=== PATIENT | female | born 1975 | race Caucasian/White ===

== ENCOUNTER 2020-02-24 06:22 | Emergency (ER) | payer BC, MEDICAID ==
--- NOTE | 2020-02-24 07:30 | EDM.PDOC ---
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 She presents to the ED with R>L wrist pain after catching a customer that collapsed. The patient did not fall. She is right hand dominant. Denies numbness, tingling or weakness. Onset Date: 02/21/20 Location: Reports: Upper Extremity, Left, Upper Extremity, Right Severity: Moderate Bilateral wrists, R>L Pain Score (Numeric/FACES): 8 - Related Data Allergies Allergy/AdvReac Type Severity Reaction Status Date / Time Penicillins Allergy Cannot Verified 02/24/20 06:28 Remember Home Meds: Home Meds Ibuprofen [Advil] 800 mg PO ASDIRECTED PRN 10/28/13 [History] Celecoxib 200 mg BID 02/24/20 [History] Losartan [Cozaar] 100 mg PO DAILY 02/24/20 [History] Norethindrone 0.35 mg ASDIRECTED 02/24/20 [History] hydroCHLOROthiazide [Hydrochlorothiazide] 12.5 mg DAILY 02/24/20 [History] Past Medical History Cardiovascular History: Reports: Hypertension Gastrointestinal History: Reports: GERD 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: Musculoskeletal History: Reports: Arthritis Neurological History: Reports: Migraines - Infectious Disease History Infectious Disease History: Reports: Chicken Pox - Past Surgical History Musculoskeletal Surgical History: Reports: Shoulder Replacement Other Musculoskeletal Surgeries/Procedures:: R rotator cuff surgery Social & Family History - Family History Family Medical History: Noncontributory - Tobacco Use Smoking Status *Q: Current Every Day Smoker Years of Tobacco use: 39 Packs/Tins Daily: 0.5 - Caffeine Use Caffeine Use: Reports: None - Alcohol Use Days Per Week of Alcohol Use: 2 Number of Drinks Per Day: 4 Total Drinks Per Week: 8 - Recreational Drug Use Recreational Drug Use: No Review of Systems - Review of Systems Review Of Systems: Comprehensive ROS is negative, except as noted in HPI. ED EXAM, GENERAL - Physical Exam Exam: See Below Exam Limited By: No Limitations General Appearance: Alert, WD/WN, No Apparent Distress Throat/Mouth: No Airway Compromise Head: Atraumatic, Normocephalic Respiratory/Chest: No Respiratory Distress Peripheral Pulses: 2+: Radial (L), Radial (R) Extremities: Normal Range of Motion, Normal Capillary Refill, Other (tenderness to bilateral dorsomedial wrists, no swelling or deformity) Neurological: Alert, Normal Cognition, No Motor/Sensory Deficits Skin Exam: Warm, Dry, Intact Course - Vital Signs Last Recorded V/S: Last Vital Signs Temp 36.7 C 02/24/20 06:25 Pulse 115 H 02/24/20 06:25 Resp 20 02/24/20 06:25 BP 139/98 H 02/24/20 06:25 Pulse Ox 100 02/24/20 06:25 - Orders/Labs/Meds Orders: Active Orders 24 hr Category Date Time Status Wrist Comp Min 3V Bi [CR] Stat Exams 02/24/20 06:47 Taken - Radiology Interpretation Free Text/Narrative:: Bilateral Wrist Xray: No acute osseous abnormalities. (ED provider interpretation) - Re-Assessments/Exams Free Text/Narrative Re-Assessment/Exam: 02/24/20 07:29 Patient fitted with bilateral velcro wrist splints. Departure - Departure Time of Disposition: 07:29 Disposition: Home, Self-Care 01 Condition: Good Clinical Impression: Wrist sprain Qualifiers: Encounter type: initial encounter Laterality: unspecified laterality Qualified Code(s): S63.509A - Unspecified sprain of unspecified wrist, initial encounter - Discharge Information *PRESCRIPTION DRUG MONITORING PROGRAM REVIEWED*: No *COPY OF PRESCRIPTION DRUG MONITORING REPORT IN PATIENT BETO: Not Applicable Instructions: Wrist Splint, Adult, [id number] Referrals: Dwaine Rothamn MD [Primary Care Provider] - Additional Instructions: Take OTC Ibuprofen as needed. Wear the wrist splints as much as possible for 1 week. If symptoms persist, follow up with your primary physician. Sepsis Event Note - Evaluation Sepsis Screening Result: No Definite Risk - Focused Exam Vital Signs: Vital Signs Temp Pulse Resp BP Pulse Ox 02/24/20 06:25 36.7 C 115 H 20 139/98 H 100 Date Exam was Performed: 02/24/20 Time Exam was Performed: 07:25 - My Orders Last 24 Hours: My Active Orders 02/24/20 06:47 Wrist Comp Min 3V Bi [CR] Stat - Assessment/Plan Last 24 Hours: My Active Orders 02/24/20 06:47 Wrist Comp Min 3V Bi [CR] Stat
[2020-02-24 07:44] VITALS: BP 127/91; PULSE 103
--- NOTE | 2020-02-25 11:23 | CR ---
INDICATION: Pain. Caught someone falling. BILATERAL WRISTS: Three views of the right and left wrists were obtained and revealed no evidence of a fracture, dislocation or other significant bone or joint abnormality. If occult fracture site is suspected clinically, if symptoms persist - reexamination in 10 to 14 days may be helpful. [facility]
== END 2020-02-24 07:35 | disposition home or self-care (01) ==
LOC: FB.ED 06:22
DX: S63.501A Unspecified sprain of right wrist, initial encounter (principal); S63.502A Unspecified sprain of left wrist, initial encounter; I10 Essential (primary) hypertension; F17.210 Nicotine dependence, cigarettes, uncomplicated; Z88.0 Allergy status to penicillin; Z79.899 Other long term (current) drug therapy; X58.XXXA Exposure to other specified factors, initial encounter
CPT/HCPCS: 73110-50; 99283-25

== ENCOUNTER 2020-07-28 11:15 | Inpatient (IN) | payer BC, MEDICAID ==
[2020-07-28] MEDS ORDERED: HYDROmorphone 2 MG/ML SDV IVPUSH PRN (12:49)
[2020-07-28] MEDS: Sodium Chloride 0.9% 1,000 ML IV SCH ×2 (13:42→21:53)
[2020-07-28] MEDS: Ondansetron 4 MG/2 ML SDV IV PRN ×2 (13:44→20:09)
[2020-07-28] MEDS: Enoxaparin 40 MG/0.4 ML Syringe SUBCUT SCH (13:47)
[2020-07-28] MEDS ORDERED: Iopamidol 755 Mg/ML 100 ML Bottle IV ONE (13:48)
[2020-07-28] MEDS: Nicotine 14 MG/24 Hr Patch TRDERM SCH (13:48)
[2020-07-28] MEDS: Pantoprazole 40 MG Vial IVPUSH SCH (13:56)
--- NOTE | 2020-07-28 16:21 | CT ---
INDICATION: Abdominal pain - pancreatitis. CT ABDOMEN AND PELVIS WITHOUT AND WITH CONTRAST WITH DELAYS: Spiral 3.75 mm axial sections were initially obtained without IV contrast and then repeated with 70 mL of Isovue 370 at 1.5 cc per second at 40 seconds, 70 seconds, and after a 5-minute delay. Examination was obtained 07/28/20 - no comparison. Total exam DLP was 1648.68 mGy-cm. Lower lung sigala and pleural spaces visualized showed no acute abnormalities or masses. The heart did not appear enlarged. No pericardial effusion was seen. The liver was low in density compatible with a fatty liver. No evidence of renal calcinosis was identified with no renal masses identified and no evidence of obstructive uropathy. There is some minimal renal fascial thickening which may represent some minimal renal cortical scarring. No adrenal abnormality was seen. No gallstones were demonstrated. The spleen had a normal appearance. The pancreas did not appear enlarged or abnormal in density. Common bile duct was normal in caliber. No definite gastric abnormality was seen. No retroperitoneal mass was seen. There is some minimal aortic calcification and plaque as well as calcification in the iliac arteries. Retroperitoneal lymphadenopathy is minimal and nonspecific. The appendix appeared normal visualized on axial images 67 through 77. No evidence of free air or bowel obstruction was seen. CT urogram showed no evidence of obstructive uropathy or definite filling defects with no definite urinary bladder abnormality identified. No organomegaly, mass lesions, or free fluid collections were identified in the abdomen or pelvis. IMPRESSION: 1. Fatty liver. 2. Normal appearing pancreas and remainder of the intraabdominal organs. 3. CT urograms unremarkable, no evidence of renal calcinosis or definite cholelithiasis. [facility]
[2020-07-29] MEDS: Pantoprazole 40 MG Vial IVPUSH SCH ×2 (00:49→13:36)
[2020-07-29] MEDS: Ondansetron 4 MG/2 ML SDV IV PRN (04:10)
[2020-07-29] MEDS: Sodium Chloride 0.9% 1,000 ML IV SCH ×2 (05:42→13:43)
[2020-07-29] MEDS: Nicotine 14 MG/24 Hr Patch TRDERM SCH (08:16)
--- NOTE | 2020-07-29 10:50 | PN ---
DATE SEEN: 07/29/2020 SUBJECTIVE: Lien Kim is a 44-year-old female admitted with complicated pancreatitis; markedly elevated liver enzymes, bilirubin, and lipase. Offending agent appears to be alcohol, though moderate use recently. CT scan revealed no problematic issues in terms of major pathology, with fatty liver. Normal-appearing pancreas. CT urogram unremarkable, and no evidence of cholelithiasis or at least visible stones. Had a good night. Pain is controlled. Required only 1 dose of Dilaudid. OBJECTIVE: VITAL SIGNS: 36.1, 63.9 kg, 157/96, 116 is the mean blood pressure, 97% on room air, 16 is the respiration. GENERAL: Appears comfortable. HEENT: Mouth and oropharynx, better in hydration. NECK: Benign. Thyroid small. CHEST: On auscultation, clear in all lung sigala. HEART: On auscultation, no ectopy or murmur. ABDOMEN: Little tender in epigastric area. ASSESSMENT: Acute pancreatitis. PLAN: We will advance diet slowly, recheck her liver enzymes, probably discharge home tomorrow. /[id number] /PATRICIAL
--- NOTE | 2020-07-29 12:34 | HP ---
ADMISSION DATE: 07/28/2020 REASON FOR VISIT: Severe abdominal pain. HISTORY OF PRESENT ILLNESS: Lien Kim is a 44-year-old female from [place] who was seen by Sabi Sheikh PA-C, [facility] [place]. She presented with a 24-hour history of increasing abdominal pain. Similar episodes in the past. History of alcohol use or misuse in the past, states that her intake has been very limited. She had a few drinks after work on prior to admission. Mild nausea vomiting. Some diarrhea preceding couple of days. Increasing pain in the last 24 hours. No known history of pancreatitis. MEDICATIONS: Daily medications include: 1. Oral contraceptives. 2. Prilosec 20 mg. ALLERGIES: No medication, environmental, or latex allergies. PAST MEDICAL HISTORY: Significant for right shoulder arthroscopy and distal clavicle resection in 2012. No other operative procedures, hospitalizations, unusual childhood diseases, major injuries, or fractures. SOCIAL HISTORY: Recently . of a complicated infection. Works at a [employer]. Two grown children. Two grand kids. Half pack per day smoker, 30 years. No vaping, no chewing. No illicit drug use. History of alcohol overuse in the past. FAMILY HISTORY: Negative for early heart disease, diabetes mellitus, or inheritable cancers. REVIEW OF SYSTEMS: Other than HPI, 13-bullet review of systems were identified, viewed, noted, found to be within normal limits and not complicated. Pertinent clinical review of systems in the HPI. PHYSICAL EXAMINATION: VITAL SIGNS: Stable. GENERAL: Young lady. Cooperative, conversant. HEENT: Funduscopic benign. Conjunctivae clear. Bright tympanic membranes. No cerumen. Clear nasal discharge. Mouth and oropharynx clear. NECK: Benign. Thyroid small. CHEST: On auscultation, clear in all lung sigala. HEART: On auscultation, no ectopy or murmur. BREAST: Declined and deferred. ABDOMEN: Tender epigastric area. Good bowel sounds. No rebound. No lower abdominal tenderness. PELVIC AND RECTAL: Deferred. EXTREMITIES: Well perfused. NEUROMUSCULAR: Intact. LABORATORY DATA: Laboratory studies from the clinic. CBC revealed white count 6800, hemoglobin 12.7. Markedly elevated AST, ALT, bilirubin, and lipase. ASSESSMENT: Acute pancreatitis, origin undetermined, alcohol likely precipitant. PLAN: IV fluids, pain control, intervention, bowel rest. Short-term stay expected. /[id number] ELVIA/GENE
[2020-07-29] MEDS: Enoxaparin 40 MG/0.4 ML Syringe SUBCUT SCH (13:36)
[2020-07-29] MEDS ORDERED: Hydrochlorothiazide 25 MG Tab PO ONE (19:43)
[2020-07-30] MEDS: Pantoprazole 40 MG Vial IVPUSH SCH (00:57)
[2020-07-30] MEDS: Sodium Chloride 0.9% 1,000 ML IV SCH (03:04)
[2020-07-30 07:40] VITALS: BP 151/101; PULSE 79
[2020-07-30] MEDS: Nicotine 14 MG/24 Hr Patch TRDERM SCH (10:38)
--- NOTE | 2020-07-30 11:10 | DISCH ---
DISCHARGE DATE: 07/30/2020 DIAGNOSIS: Acute pancreatitis. HOSPITAL COURSE: Lien Kim is a 44-year-old female, recently , [place] resident seen, was admitted directly from the clinic to [facility]. Presented with a 3-day history of nausea, vomiting, nonbilious, unproblematic diarrhea, with increasing mid abdominal pain. Laboratory studies in the clinic revealed markedly elevated liver enzymes and lipase consistent with pancreatitis. Admitted for treatment. Please see admitting history and physical. CAT scan revealed some fatty liver changes, but no other pathologic findings. Pancreas appeared to be without pseudocyst or complicating issues, fatty liver only, no other pathology. The pain responded well, required little way of analgesics. Throughout her stay, pain reduced markedly. Liver enzymes, ALT, AST, bilirubin were still elevated. Lipase remained elevated. Two series revealed stability. Primarily she has been pain free, tolerating a bland diet. Otherwise, doing well. Ready for discharge. Blood pressure was moderately elevated, has been so, maybe an issue of nicotine withdrawal and circumstances. Followup blood pressures are planned. DISCHARGE EXAM: VITAL SIGNS: 36.8, 79, 151/101, 15, 98%. GENERAL: Appears comfortable. Little bit agitated. HEENT: Mouth and oropharynx clear. NECK: Benign. Thyroid small, no adenopathy. CHEST: On auscultation, clear in all lung sigala. HEART: On auscultation, no ectopy or murmur. ABDOMEN: Completely benign. No focal tenderness, no palpable masses. EXTREMITIES: Well perfused. DISCHARGE INSTRUCTIONS: Discharged home. No alcohol. [place] diet. Soft foods, frequent small meals. Restarting nicotine a bad idea, reduction and removal in the future, given recommendations and health issues considered. We will follow up blood pressures as an outpatient, followup visit in a week. Increasing pain or disability, proceed accordingly. 45 minutes in discharge planning and care. /[id number] /GENE
== END 2020-07-30 10:05 | disposition home or self-care (01) | DRG 440 ==
LOC: FB.MS 11:23
PROVIDERS: ADMIT Family Medicine; ATTEND Family Medicine
DX: K85.20 Alcohol induced acute pancreatitis without necrosis or infection (principal); F17.210 Nicotine dependence, cigarettes, uncomplicated; Z79.899 Other long term (current) drug therapy
CPT/HCPCS: 36415; 74178; 80076; 82150; 83690; A9270-GY; C9113; J1170; J1650; J2405; J7030; Q9967

== ENCOUNTER 2021-02-06 17:21 | Emergency (ER) | payer MEDICAID ==
[2021-02-06] MEDS ORDERED: Ondansetron 4 MG Tab.DIS PO ONE (17:22)
[2021-02-06] MEDS ORDERED: Sodium Chloride 0.9% 1,000 ML IV ONE ×3 (17:25→20:17)
[2021-02-06] MEDS ORDERED: Ondansetron 4 MG/2 ML SDV IVPUSH ONE (17:26)
[2021-02-06] MEDS ORDERED: Ketorolac 30 MG/ML SDV IVPUSH ONE (17:26)
[2021-02-06] MEDS ORDERED: Alum Hydroxide/Mag Hydroxide 30 ML, Lidocaine 2% 15 ML PO ONE ×2 (18:19)
[2021-02-06] MEDS ORDERED: Pantoprazole 40 MG Vial IVPUSH ONE (18:19)
--- NOTE | 2021-02-06 19:52 | EDM.PDOC ---
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 and then left to go to clinic d/t inc'd abd pain in epigastrium Dr Young did a thorough w/u, noted lipase 2x ULN, dx acute pancreatitis and send pt to ED for further evaluation pt with one previous episode 6m ago, lipase 6x ULN then with abd CT neg, pt admitted overnight by her PCP Dr Rothman pt drinks 1/2 gal black araujo corazon straight from the bottle every 3-4d has not done AA has not seen alc counselor stopped drinking 4m, then friends told her she could drink a little, pt says "I cannot" pt with N and occasional V and no pain x 2d, did not work, last 2d, tried to return to work today and had inc'd epigastric pain, now pain free after Toradol 30 mg IV given Zofran 4 mg IM and clinic and another 4 mg IV no f/c/d last alc 3d ago pt notes 10m ago from alc abuse and pneumonia, that she inc'd her drinking after his Epigastric region & midback Pain Score (Numeric/FACES): 4 - Related Data Allergies Allergy/AdvReac Type Severity Reaction Status Date / Time Penicillins Allergy Cannot Verified 02/06/21 18:08 Remember Home Meds: Home Meds Norethindrone 1 tab PO DAILY 07/28/20 [History] Omeprazole 20 mg PO DAILY 07/28/20 [History] Sulfamethoxazole/Trimethoprim [Sulfamethoxazole-Tmp Ds Tablet] 1 each PO BID #6 tablet 02/06/21 [Rx] Past Medical History HEENT History: Reports: Other (See Below) Other HEENT History: Wears glasses for night driving. Cardiovascular History: Reports: Hypertension Other Cardiovascular History: States past history of high blood pressure. Respiratory History: Reports: Other (See Below) Other Respiratory History: Smoker. 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 Psychiatric History: Reports: None, Addiction Other Psychiatric History: hx ETOH abuse Endocrine/Metabolic History: Reports: None Hematologic History: Reports: None Immunologic History: Reports: None Oncologic (Cancer) History: Reports: None Dermatologic History: Reports: None - Infectious Disease History Infectious Disease History: Reports: Chicken Pox - Past Surgical History Head Surgeries/Procedures: Reports: None GI Surgical History: Reports: None Female Surgical History: Reports: None Musculoskeletal Surgical History: Reports: Shoulder Replacement Other Musculoskeletal Surgeries/Procedures:: Right rotator cuff surgery. Social & Family History - Family History Family Medical History: No Pertinent Family History - Tobacco Use Tobacco Use Status *Q: Current Every Day Tobacco User Years of Tobacco use: 31 Packs/Tins Daily: 0.5 - Caffeine Use Caffeine Use: Reports: None - Alcohol Use Days Per Week of Alcohol Use: 7 Number of Drinks Per Day: 10 Total Drinks Per Week: 70 - Recreational Drug Use Recreational Drug Use: No ED ROS GENERAL - Review of Systems Review Of Systems: See Below Constitutional: Reports: No Symptoms HEENT: Reports: No Symptoms Respiratory: Reports: No Symptoms Cardiovascular: Reports: No Symptoms Endocrine: Reports: No Symptoms GI/Abdominal: Reports: Abdominal Pain, Nausea, Vomiting : Reports: No Symptoms Musculoskeletal: Reports: No Symptoms Skin: Reports: No Symptoms Neurological: Reports: No Symptoms Psychiatric: Reports: No Symptoms Hematologic/Lymphatic: Reports: No Symptoms Immunologic: Reports: No Symptoms ED EXAM, GI/ABD - Physical Exam Exam: See Below Exam Limited By: No Limitations General Appearance: Alert, WD/WN, No Apparent Distress Ears: Hearing Grossly Normal Throat/Mouth: Normal Inspection, Normal Lips, Normal Teeth, Normal Voice, No Airway Compromise Head: Atraumatic, Normocephalic Neck: Normal Inspection, Supple, Non-Tender, Full Range of Motion Respiratory/Chest: Lungs Clear, Normal Breath Sounds, No Accessory Muscle Use Cardiovascular: Regular Rate, Rhythm, No Edema GI/Abdominal Exam: Normal Bowel Sounds, Soft, Non-Tender, No Organomegaly, No Distention, Other (NT after Toradol) Back Exam: Normal Inspection, Full Range of Motion. No: CVA Tenderness (R), CVA Tenderness (L) Extremities: Normal Inspection, Non-Tender, No Pedal Edema Neurological: Alert, Oriented, CN II-XII Intact, Normal Cognition, No Motor/Sensory Deficits Psychiatric: Depressed Mood, Other (good eye contact, normal speech, cognition intact, no SI/HI) Skin Exam: Warm, Dry, Intact, Normal Color, No Rash Lymphatic: No Adenopathy Course - Vital Signs Last Recorded V/S: Last Vital Signs Temp 36.7 C 02/06/21 17:25 Pulse 89 02/06/21 20:04 Resp 18 02/06/21 20:04 BP 147/96 H 02/06/21 20:04 Pulse Ox 97 02/06/21 20:04 - Orders/Labs/Meds Orders: Active Orders 24 hr Category Date Time Status CULTURE URINE [RM] Stat Lab 02/06/21 20:51 Ordered Labs: Laboratory Tests 02/06/21 Range/Units 20:10 Urine Color Red (YELLOW) Urine Appearance Slightly cloudy (CLEAR) Urine pH 5.0 (5.0-6.5) Ur Specific [place] 1.020 (1.010-1.025) Urine Protein 30 H (NEGATIVE) mg/dL Urine Glucose (UA) Normal (NORMAL) mg/dL Urine Ketones 15 H (NEGATIVE) mg/dL Urine Occult Blood Negative (NEGATIVE) Urine Nitrite Positive H (NEGATIVE) Urine Bilirubin Moderate H (NEGATIVE) Urine Urobilinogen >=12 H (NEGATIVE) mg/dL Ur Leukocyte Esterase Small H (NEGATIVE) Urine RBC 0-5 (0-5) Urine WBC 10-20 H (0-5) Ur Squamous Epith Cells Few H (NS,R,O) Urine Bacteria Many H (NS) Meds: Medications Discontinued Medications Generic Name Dose Route Start Last Admin Trade Name Freq PRN Reason Stop Dose Admin Al Hydroxide/Mg Hydroxide 30 0 ml 02/06/21 18:19 02/06/21 18:38 ml/ Lidocaine HCl 15 ml PO 02/06/21 18:20 30 ml ONETIME ONE Administration Sodium Chloride 1,000 mls @ 999 mls/hr 02/06/21 17:25 02/06/21 18:02 Normal Saline IV 02/06/21 18:25 999 mls/hr .BOLUS ONE Administration Sodium Chloride 1,000 mls @ 999 mls/hr 02/06/21 17:26 02/06/21 19:03 Normal Saline IV 04/30/21 18:26 999 mls/hr .BOLUS ONE Administration Sodium Chloride 1,000 mls @ 999 mls/hr 02/06/21 20:17 02/06/21 20:13 Normal Saline IV 02/06/21 21:17 999 mls/hr .BOLUS ONE Administration Ketorolac Tromethamine 30 mg 02/06/21 17:26 02/06/21 18:13 Ketorolac 30 Mg/Ml Sdv IVPUSH 02/06/21 17:27 30 mg ONETIME ONE Administration Ondansetron HCl 4 mg 02/06/21 17:26 02/06/21 18:02 Ondansetron 4 Mg/2 Ml Sdv IVPUSH 02/06/21 17:27 4 mg ONETIME ONE Administration Pantoprazole Sodium 40 mg 02/06/21 18:19 02/06/21 18:38 Pantoprazole 40 Mg Vial IVPUSH 02/06/21 18:20 40 mg ONETIME ONE Administration - Re-Assessments/Exams Free Text/Narrative Re-Assessment/Exam: 02/06/21 21:34 pt was pain free after Toradol 30 mg IV given 3 liter NS still 15 mg/kg ketones in urine after 2.5 liters UC obtained as many bacteria in urine, will tx with tmp/smx DS BID x 3d Dr Rothman is on hospital duty and will leave a copy of this note for him to review when he rounds in the AM pt stopped drinking for 4m after her 1st episode of pancreatitis 6m ago and seems genuinely interested in stopping has not been to AA in past, has a friend who wants to take her Departure - Departure Time of Disposition: 21:29 Disposition: Home, Self-Care 01 Condition: Good Clinical Impression: Acute pancreatitis, Moderate dehydration, Alcohol abuse, Urinary tract infection - Discharge Information *PRESCRIPTION DRUG MONITORING PROGRAM REVIEWED*: Yes *COPY OF PRESCRIPTION DRUG MONITORING REPORT IN PATIENT BETO: No Prescriptions: Sulfamethoxazole/Trimethoprim [Sulfamethoxazole-Tmp Ds Tablet] 1 each PO BID #6 tablet Instructions: Acute Pancreatitis, Pancreatitis Eating Plan, Alcohol Use Disorder, Urinary Tract Infection, Adult Referrals: Dwaine Rothman MD [Primary Care Provider] - Forms: ED Department Discharge, ED Return to Work/School Form Additional Instructions: Limit food for the next several days. For pain, take ibuprofen 200 mg 4 tabs 3 times a day for 5-7 days. For nausea, take ondansetron ODT 4 mg under the tongue every 6 hours as needed. For bladder infection, take sulfamethoxazole-trimethoprim DS 1 tab 2 times a day for 3 days. Eat a bland diet. Maintain fluids. Do not drink alcohol. Go to AA. Arrange to see a chemical dependency counselor through Dr Rothman's office. See Dr Rothman as soon as possible. See a provider in Dr Rothman's office in 4-5 days for further recommendations. However, return to Emergency Department if you are feeling worse. Sepsis Event Note (ED) - Evaluation Sepsis Screening Result: No Definite Risk - Focused Exam Vital Signs: Vital Signs Temp Pulse Resp BP Pulse Ox 02/06/21 20:04 89 18 147/96 H 97 02/06/21 18:39 79 18 155/87 H 100 02/06/21 17:25 36.7 C 100 18 162/110 H 100 - My Orders Last 24 Hours: My Active Orders 02/06/21 20:51 CULTURE URINE [RM] Stat - Assessment/Plan Last 24 Hours: My Active Orders 02/06/21 20:51 CULTURE URINE [RM] Stat
[2021-02-06 20:34] VITALS: BP 147/96; PULSE 89
== END 2021-02-06 22:01 | disposition home or self-care (01) ==
LOC: FB.ED 17:21
DX: K85.90 Acute pancreatitis without necrosis or infection, unspecified (principal); E86.0 Dehydration; F10.10 Alcohol abuse, uncomplicated; N39.0 Urinary tract infection, site not specified; I10 Essential (primary) hypertension; F17.200 Nicotine dependence, unspecified, uncomplicated; K21.9 Gastro-esophageal reflux disease without esophagitis; Z79.899 Other long term (current) drug therapy; Z88.0 Allergy status to penicillin
CPT/HCPCS: 81001; 87086; 87088; 96374; 96375; 99284; A9270; C9113; J1885; J2405; J7030; 87186

== ENCOUNTER 2022-05-28 08:25 | Emergency (ER) | payer MEDICAID ==
[2022-05-28] MEDS ORDERED: Sodium Chloride 0.9% 10 ML Syringe FLUSH PRN (08:36)
[2022-05-28] MEDS ORDERED: Ondansetron 4 MG/2 ML SDV IVPUSH STA (08:38)
[2022-05-28] MEDS ORDERED: LORazepam 2 MG/ML SDV IVPUSH STA (08:38)
[2022-05-28] MEDS ORDERED: Sodium Chloride 0.9% 1,000 ML IV SCH (08:45)
[2022-05-28] MEDS ORDERED: Iopamidol 755 Mg/ML 75 ML Bottle IV ONE (09:08)
[2022-05-28 09:11] LABS: ESTIMATED GFR 71 mL/min (>60)
[2022-05-28] MEDS ORDERED: Labetalol 20 MG/4 ML Syringe IVPUSH STA (11:27)
[2022-05-28 11:30] VITALS: PULSE 102
[2022-05-28 15:34] VITALS: BP 128/100
== END 2022-05-28 12:25 | disposition home or self-care (01) ==
LOC: FB.ED 08:25
DX: K70.9 Alcoholic liver disease, unspecified (principal); E87.6 Hypokalemia; I10 Essential (primary) hypertension; Z88.0 Allergy status to penicillin; Z79.899 Other long term (current) drug therapy
CPT/HCPCS: 36415; 74177; 80053; 80307; 81001; 81025; 82150; 83690; 84484; 85025; 93005; 96361; 96374; 96375; 99285-25; J2060; J2405; J3490; J7030; Q9967

== ENCOUNTER 2022-06-19 13:10 | Emergency (ER) | payer MEDICAID ==
[2022-06-19] MEDS ORDERED: Cephalexin 250 MG Cap PO ONE (13:11)
[2022-06-19] MEDS ORDERED: LORazepam 1 MG Tab PO ONE (13:49)
[2022-06-19] MEDS ORDERED: Ondansetron 4 MG Tab.DIS PO ONE (13:54)
[2022-06-19 14:02] LABS: ESTIMATED GFR 71 mL/min (>60)
[2022-06-19] MEDS ORDERED: Sodium Chloride 0.9% 1,000 ML IV ONE (14:03)
[2022-06-19] MEDS ORDERED: LORazepam 2 MG/ML SDV IVPUSH ONE ×2 (14:04→17:32)
[2022-06-19] MEDS: Ondansetron 4 MG/2 ML SDV IVPUSH ONE ×2 (14:13→17:46)
[2022-06-19] MEDS ORDERED: cefTRIAXone 2 GM Vial IVPUSH ONE (15:02)
[2022-06-19] MEDS ORDERED: cefTRIAXone 1 GM Vial IVPUSH STA (15:06)
[2022-06-19] MEDS ORDERED: Ondansetron 4 MG/2 ML SDV IVPUSH ONE (17:34)
[2022-06-19 20:13] VITALS: BP 145/107; PULSE 168
== END 2022-06-19 17:53 | disposition other institution (70) ==
LOC: FB.ED 13:10
DX: F10.239 Alcohol dependence with withdrawal, unspecified (principal); K70.9 Alcoholic liver disease, unspecified; N39.0 Urinary tract infection, site not specified; F41.9 Anxiety disorder, unspecified; I10 Essential (primary) hypertension; Z88.0 Allergy status to penicillin; Z79.899 Other long term (current) drug therapy; Z20.822 Contact with and (suspected) exposure to COVID-19
CPT/HCPCS: 80053; 80307; 81001; 83690; 85025; 87086; 87088; 87186; 87635; 96361; 96374; 96375; 96376; 99284; A9270; J0696; J2060; J2405; J7030; U0002

== ENCOUNTER 2022-09-12 19:25 | Emergency (ER) | payer MEDICAID ==
[2022-09-12 19:46] VITALS: BP 151/101; PULSE 87
== END 2022-09-12 21:10 | disposition home or self-care (01) ==
LOC: FB.ED 19:25
DX: S09.90XA Unspecified injury of head, initial encounter (principal); I10 Essential (primary) hypertension; F17.210 Nicotine dependence, cigarettes, uncomplicated; Z88.0 Allergy status to penicillin; W22.09XA Striking against other stationary object, initial encounter
CPT/HCPCS: 70450; 99283

== ENCOUNTER 2023-04-04 23:16 | Emergency (ER) | payer MEDICAID ==
[2023-04-04] MEDS ORDERED: Pantoprazole 40 MG Vial IVPUSH ONE (23:53)
[2023-04-04] MEDS ORDERED: Aspirin 81 MG Tab.Chew PO ONE (23:53)
[2023-04-05 00:06] LABS: BLOOD UREA NITROGEN,BUN 11 mg/dL (7-18); BUN/CREATININE RATIO 13.8 (9-20); CALCIUM 9.6 mg/dL (8.6-10.2); CARBON DIOXIDE,CO2 27 mmol/L (21-32); CHLORIDE,CL 100 mmol/L (100-110); CREATININE 0.8 mg/dL (0.55-1.02); EST CRCL DRUG DOSING (CG) 72.69 mL/min; ESTIMATED GFR 92 mL/min (>60); GLUCOSE RANDOM 120 mg/dL (80-116); POTASSIUM,K 3.1 mmol/L (3.5-5.3); SODIUM,NA 139 mmol/L (135-145)
[2023-04-05 00:09] LABS: BASOPHILS PERCENT AUTO 0.4 % (0.2-1.5); EOSINOPHILS ABSOLUTE AUTO 0.1 x10-3/uL (0.0-0.8); HEMATOCRIT 42.5 % (34.2-48.2); HEMOGLOBIN 14.9 g/dL (11.4-15.5); LYMPHOCYTES ABSOLUTE AUTO 2.3 x10-3/uL (1.0-4.4); LYMPHOCYTES PERCENT AUTO 26.6 % (18.4-52.1); MEAN CORPUSCULAR HEMOGLOBIN 37.3 pg (23.9-33.9); MEAN CORPUSCULAR VOLUME 106.5 fL (76.7-100.5); MEAN PLATELET VOLUME 9.3 fL (7.1-12.4); MONOCYTES ABSOLUTE AUTO 0.7 x10-3/uL (0.3-1.0); MONOCYTES PERCENT AUTO 7.8 % (4.4-15.7); NEUTROPHILS ABSOLUTE AUTO 5.5 x10-3/uL (1.5-6.3); NEUTROPHILS PERCENT AUTO 64.2 % (30.8-76.2); PLATELET COUNT,PLT 118 x10(3)uL (151-488); RED BLOOD CELL COUNT 3.99 x10(6)uL (3.60-5.20); RED CELL DISTRIBUTION WIDTH 13.8 % (12.3-16.5); WHITE BLOOD CELL COUNT,WBC 8.7 x10-3/uL (3.0-10.3)
[2023-04-05 00:15] LABS: TROPONIN I 10.2 pg/mL (4.0-60.3)
[2023-04-05 00:17] LABS: A/G RATIO 0.8; ALANINE AMINOTRANSFERASE,ALT 134 U/L (12-36); ALBUMIN 3.6 g/dL (3.5-5.2); ALKALINE PHOSPHATASE 142 IU/L (56-112); BILIRUBIN TOTAL 1.7 mg/dL (0.1-1.3); PROTEIN TOTAL,TP 8.1 g/dL (6.0-8.0)
[2023-04-05 00:23] LABS: MAGNESIUM 0.7 mg/dL (1.8-2.5)
[2023-04-05 00:24] LABS: ASPARTATE AMNIOTRANSFERASE,AST 212 IU/L (5-25)
[2023-04-05] MEDS ORDERED: Thiamine 200 MG/2 ML MDV IVPUSH ONE (00:34)
[2023-04-05] MEDS ORDERED: Folic Acid 1 MG Tab PO ONE (00:37)
[2023-04-05] MEDS ORDERED: Magnesium Sulfate/Water 50 ML ONE (00:43)
[2023-04-05] MEDS ORDERED: Nicotine 21 MG/24 Hr Patch TRDERM ONE (00:59)
[2023-04-05] MEDS ORDERED: Magnesium Sulfate/Water 4 GM in Premix Bag 1 BAG IV ONE ×2 (01:07→04:20)
[2023-04-05] MEDS ORDERED: NS + KCl 20mEq/L 1,000 ML IV ONE (01:15)
[2023-04-05] MEDS: Sodium Chloride 0.9% 10 ML Syringe FLUSH PRN ×2 (01:20)
[2023-04-05] MEDS ORDERED: Iopamidol 755 Mg/ML 100 ML Bottle IV SCH (01:30)
[2023-04-05 04:24] LABS: BILIRUBIN,URINE NEGATIVE (NEGATIVE); GLUCOSE,URINE NORMAL (NORMAL); KETONES,URINE NEGATIVE (NEGATIVE); LEUKOCYTE ESTERASE,URINE NEGATIVE (NEGATIVE); NITRITE,URINE NEGATIVE (NEGATIVE); OCCULT BLOOD,URINE NEGATIVE (NEGATIVE); PROTEIN,URINE TRACE mg/dL (NEGATIVE); UROBILINOGEN,URINE NORMAL (NEGATIVE)
[2023-04-05] MEDS ORDERED: Multivitamin Tab PO STA (04:24)
[2023-04-05 04:25] LABS: APPEARANCE,URINE CLEAR (CLEAR); BACTERIA,URINE RARE (NS); COLOR,URINE YELLOW (YELLOW); RBC,URINE 0-5 (0-5); SQUAMOUS EPITHELIAL CELLS,UR OCCASIONAL (NS,R,O); WBC,URINE 0-5 (0-5)
[2023-04-05] MEDS ORDERED: Nicotine 21 MG/24 Hr Patch ONE (04:35)
[2023-04-05 06:30] VITALS: BP 157/105; PULSE 91
== END 2023-04-05 07:20 | disposition home or self-care (01) ==
LOC: FB.ED 23:16
DX: K70.10 Alcoholic hepatitis without ascites (principal); K29.20 Alcoholic gastritis without bleeding; F10.239 Alcohol dependence with withdrawal, unspecified; R56.9 Unspecified convulsions; E83.42 Hypomagnesemia; K80.20 Calculus of gallbladder without cholecystitis without obstruction; E46 Unspecified protein-calorie malnutrition; I10 Essential (primary) hypertension; K21.9 Gastro-esophageal reflux disease without esophagitis; F17.210 Nicotine dependence, cigarettes, uncomplicated; Z88.0 Allergy status to penicillin; Z79.899 Other long term (current) drug therapy
CPT/HCPCS: 36415; 71260; 74177; 80053; 81001; 83690; 83735; 84100; 84484; 84702; 85025; 85379; 86140; 93005; 93010; 96365; 96366; 96368; 96375; 96376; 99284; 99285-25; A9270-GY; C9113; J3360; J3411; J3475; J3480; J3490; Q9967

== ENCOUNTER 2023-05-25 19:35 | Emergency (ER) | payer MEDICAID ==
[2023-05-25 20:22] LABS: BASOPHILS ABSOLUTE AUTO 0.1 x10-3/uL (0.0-0.1); BASOPHILS PERCENT AUTO 0.9 % (0.2-1.5); EOSINOPHILS ABSOLUTE AUTO 0.2 x10-3/uL (0.0-0.8); EOSINOPHILS PERCENT AUTO 1.6 % (0.6-8.1); HEMATOCRIT 42.8 % (34.2-48.2); HEMOGLOBIN 15.1 g/dL (11.4-15.5); LYMPHOCYTES ABSOLUTE AUTO 4.1 x10-3/uL (1.0-4.4); LYMPHOCYTES PERCENT AUTO 36.7 % (18.4-52.1); MEAN CORPUSCULAR HEMOGLOBIN 37.5 pg (23.9-33.9); MEAN CORPUSCULAR HGB CONC 35.4 g/dL (31.9-34.8); MEAN PLATELET VOLUME 8.2 fL (7.1-12.4); MONOCYTES PERCENT AUTO 8.5 % (4.4-15.7); NEUTROPHILS ABSOLUTE AUTO 5.9 x10-3/uL (1.5-6.3); NEUTROPHILS PERCENT AUTO 52.3 % (30.8-76.2); PLATELET COUNT,PLT 250 x10(3)uL (151-488); RED BLOOD CELL COUNT 4.04 x10(6)uL (3.60-5.20); RED CELL DISTRIBUTION WIDTH 12.6 % (12.3-16.5); WHITE BLOOD CELL COUNT,WBC 11.2 x10-3/uL (3.0-10.3)
[2023-05-25 20:28] LABS: BLOOD UREA NITROGEN,BUN 5 mg/dL (7-18); BUN/CREATININE RATIO 6.3 (9-20); CALCIUM 9.7 mg/dL (8.6-10.2); CARBON DIOXIDE,CO2 27 mmol/L (21-32); CHLORIDE,CL 101 mmol/L (100-110); CREATININE 0.8 mg/dL (0.55-1.02); ESTIMATED GFR 92 mL/min (>60); GLUCOSE RANDOM 125 mg/dL (80-116); POTASSIUM,K 3.1 mmol/L (3.5-5.3); SODIUM,NA 138 mmol/L (135-145)
[2023-05-25 20:36] VITALS: BP 140/98; PULSE 80
[2023-05-25 20:44] LABS: AMPHETAMINES SCREEN, URINE NEGATIVE (NEGATIVE); BARBITURATE SCREEN,URINE NEGATIVE (NEGATIVE); BENZODIAZEPINES SCREEN,URINE NEGATIVE (NEGATIVE); BUPRENORPHINE SCREEN,URINE NEGATIVE (NEGATIVE); METHADONE SCREEN, URINE NEGATIVE (NEGATIVE); METHAMPHETAMINE SCREEN, URINE NEGATIVE (NEGATIVE); OXYCODONE SCREEN,URINE NEGATIVE (NEGATIVE); PROPOXYPHENE SCREEN,URINE NEGATIVE (NEGATIVE); THC SCREEN,URINE NEGATIVE (NEGATIVE)
== END 2023-05-25 20:55 | disposition home or self-care (01) ==
LOC: FB.ED 19:35
DX: F10.129 Alcohol abuse with intoxication, unspecified (principal); I10 Essential (primary) hypertension; Z88.0 Allergy status to penicillin; Y90.0 Blood alcohol level of less than 20 mg/100 ml
CPT/HCPCS: 36415; 80048; 80307; 84484; 85025; 85379; 93005; 93010; 99283; 99284

== ENCOUNTER 2023-05-31 18:03 | Emergency (ER) | payer MEDICAID ==
[2023-05-31] MEDS ORDERED: Sodium Chloride 0.9% 10 ML Syringe FLUSH PRN (18:34)
[2023-05-31] MEDS ORDERED: Prochlorperazine 10 MG/2 ML SDV IVPUSH ONE (18:37)
[2023-05-31] MEDS ORDERED: Pantoprazole 40 MG Vial IVPUSH ONE (18:37)
[2023-05-31] MEDS ORDERED: Thiamine 200 MG/2 ML MDV IVPUSH ONE (18:40)
[2023-05-31] MEDS ORDERED: LORazepam 2 MG/ML SDV IVPUSH ONE ×2 (18:41→18:42)
[2023-05-31] MEDS ORDERED: Sodium Chloride 0.9% 1,000 ML IV SCH (18:45)
[2023-05-31 19:06] LABS: BASOPHILS PERCENT AUTO 0.4 % (0.2-1.5); EOSINOPHILS PERCENT AUTO 0.4 % (0.6-8.1); HEMATOCRIT 42.6 % (34.2-48.2); HEMOGLOBIN 14.9 g/dL (11.4-15.5); LYMPHOCYTES ABSOLUTE AUTO 2.2 x10-3/uL (1.0-4.4); LYMPHOCYTES PERCENT AUTO 18.2 % (18.4-52.1); MEAN CORPUSCULAR HGB CONC 35.1 g/dL (31.9-34.8); MEAN CORPUSCULAR VOLUME 105.5 fL (76.7-100.5); MEAN PLATELET VOLUME 8.1 fL (7.1-12.4); MONOCYTES ABSOLUTE AUTO 0.7 x10-3/uL (0.3-1.0); MONOCYTES PERCENT AUTO 5.3 % (4.4-15.7); NEUTROPHILS ABSOLUTE AUTO 9.3 x10-3/uL (1.5-6.3); NEUTROPHILS PERCENT AUTO 75.7 % (30.8-76.2); PLATELET COUNT,PLT 215 x10(3)uL (151-488); RED BLOOD CELL COUNT 4.03 x10(6)uL (3.60-5.20); RED CELL DISTRIBUTION WIDTH 12.9 % (12.3-16.5); WHITE BLOOD CELL COUNT,WBC 12.3 x10-3/uL (3.0-10.3)
[2023-05-31 19:12] LABS: BLOOD UREA NITROGEN,BUN 11 mg/dL (7-18); CALCIUM 8.8 mg/dL (8.6-10.2); CARBON DIOXIDE,CO2 26 mmol/L (21-32); CHLORIDE,CL 98 mmol/L (100-110); EST CRCL DRUG DOSING (CG) 58.15 mL/min; ESTIMATED GFR 70 mL/min (>60); GLUCOSE RANDOM 96 mg/dL (80-116); POTASSIUM,K 3.5 mmol/L (3.5-5.3); SODIUM,NA 137 mmol/L (135-145)
[2023-05-31 19:18] LABS: A/G RATIO 0.8; ALANINE AMINOTRANSFERASE,ALT 55 U/L (12-36); ALBUMIN 3.4 g/dL (3.5-5.2); ALKALINE PHOSPHATASE 109 IU/L (56-112); AMYLASE 76 U/L (25-115); ASPARTATE AMNIOTRANSFERASE,AST 65 IU/L (5-25); BILIRUBIN TOTAL 1.5 mg/dL (0.1-1.3); PROTEIN TOTAL,TP 7.5 g/dL (6.0-8.0)
[2023-05-31 19:25] LABS: MAGNESIUM 0.4 mg/dL (1.8-2.5)
[2023-05-31] MEDS ORDERED: Magnesium Sulfate/Water 4 GM in Premix Bag 1 BAG IV ONE (20:07)
[2023-05-31 23:01] LABS: BILIRUBIN,URINE NEGATIVE (NEGATIVE); GLUCOSE,URINE NORMAL (NORMAL); KETONES,URINE 15 mg/dL (NEGATIVE); LEUKOCYTE ESTERASE,URINE NEGATIVE (NEGATIVE); NITRITE,URINE POSITIVE (NEGATIVE); OCCULT BLOOD,URINE NEGATIVE (NEGATIVE); PH,URINE 6.5 (5.0-6.5); PROTEIN,URINE 30 mg/dL (NEGATIVE); UROBILINOGEN,URINE NORMAL (NEGATIVE)
[2023-05-31 23:03] LABS: APPEARANCE,URINE CLEAR (CLEAR); BACTERIA,URINE MODERATE (NS); COLOR,URINE YELLOW (YELLOW); RBC,URINE 0-5 (0-5); SQUAMOUS EPITHELIAL CELLS,UR FEW (NS,R,O); WBC,URINE 0-5 (0-5)
[2023-05-31 23:04] LABS: AMPHETAMINES SCREEN, URINE NEGATIVE (NEGATIVE); BARBITURATE SCREEN,URINE NEGATIVE (NEGATIVE); BENZODIAZEPINES SCREEN,URINE POSITIVE (NEGATIVE); METHADONE SCREEN, URINE NEGATIVE (NEGATIVE); METHAMPHETAMINE SCREEN, URINE NEGATIVE (NEGATIVE); OXYCODONE SCREEN,URINE NEGATIVE (NEGATIVE); PROPOXYPHENE SCREEN,URINE NEGATIVE (NEGATIVE); THC SCREEN,URINE NEGATIVE (NEGATIVE)
[2023-05-31 23:05] LABS: BUPRENORPHINE SCREEN,URINE NEGATIVE (NEGATIVE)
[2023-05-31 23:38] VITALS: BP 153/99; PULSE 104
== END 2023-05-31 23:43 | disposition home or self-care (01) ==
LOC: FB.ED 18:03
DX: K29.20 Alcoholic gastritis without bleeding (principal); K70.9 Alcoholic liver disease, unspecified; F10.239 Alcohol dependence with withdrawal, unspecified; I10 Essential (primary) hypertension; Z88.0 Allergy status to penicillin; Y90.0 Blood alcohol level of less than 20 mg/100 ml
CPT/HCPCS: 36415; 80053; 80307; 81001; 82150; 83690; 83735; 84100; 85025; 87086; 87088; 87186; 96361; 96365; 96366; 96375; 99284; 99284-25; C9113; J0780; J2060; J3411; J3475; J7030

== ENCOUNTER 2025-07-28 10:54 | Emergency (ER) | payer MEDICAID ==
[2025-07-28 11:18] VITALS: BP 163/120; PULSE 105
== END 2025-07-28 11:32 | disposition left against medical advice (07) ==
LOC: FB.ED 10:54
DX: Z53.21 Procedure and treatment not carried out due to patient leaving prior to being seen by health care provider (principal)